=== PATIENT | male | born 2000 | race Asian ===

== ENCOUNTER 2020-07-22 14:03 | Emergency (ER) | payer MEDICAID ==
[~2020-07-22] VITALS: Ht 177.8 cm; Wt 61.2 kg
[2020-07-22 14:12] VITALS: BP_SYST 109
[2020-07-22 14:40] VITALS: BP_SYST 109
== END 2020-07-22 14:40 | disposition home or self-care (01) ==
LOC: SED 14:03
DX: H01.002 Unspecified blepharitis right lower eyelid (principal)
CPT/HCPCS: 99283

== ENCOUNTER 2020-09-20 11:35 | Emergency (ER) | payer MEDICAID ==
[~2020-09-20] VITALS: Ht 177.8 cm; Wt 62.6 kg
[2020-09-20 11:39] VITALS: BP_SYST 111
--- NOTE | 2020-09-20 11:39 | NUR ---
Patient to ER bed 8 to gown for evaluation. Side rails up. Report given to YAJAIRA WALKER.
--- NOTE | 2020-09-20 11:40 | NUR ---
Patient presented to ER C/O EYE IRRITATION Patient ambulatory to ER A&OX4, afebrile, skin pink & warm, denies N/V/D, denies painright eye periorbital redness to right eye. Patient states he has irritation and redness x2 days to right eye. PT ststes he has recent hx pink eye.
--- NOTE | 2020-09-20 12:44 | NUR ---
ER Dr. June at bedside examining patient.
[2020-09-20 13:20] VITALS: BP_SYST 111
--- NOTE | 2020-09-20 13:20 | NUR ---
Patient given written and verbal discharge instructions and verbalizes understanding. ER MD discussed with patient the results and treatment provided. Patient in stable condition. ID arm band removed. Rx of keflex,polytrim given. Patient educated on pain management and to follow up with PMD. Pain Scale 0/10. Opportunity for questions provided and answered. Medication side effect fact sheet provided.
== END 2020-09-20 13:20 | disposition home or self-care (01) ==
LOC: SED 11:35
DX: L03.213 Periorbital cellulitis (principal)
CPT/HCPCS: 81002; 99283

== ENCOUNTER 2020-12-16 08:19 | Emergency (ER) | payer MEDICAID ==
[~2020-12-16] VITALS: Ht 177.8 cm; Wt 63.5 kg
[2020-12-16 08:20] VITALS: BP_SYST 109
[2020-12-16 09:17] VITALS: BP_SYST 109
== END 2020-12-16 09:18 | disposition home or self-care (01) ==
LOC: SED 08:19
DX: H11.432 Conjunctival hyperemia, left eye (principal); H57.89 Other specified disorders of eye and adnexa
CPT/HCPCS: 99283

== ENCOUNTER 2021-05-01 23:28 | Emergency (ER) | payer MEDICAID ==
[~2021-05-01] VITALS: Ht 177.8 cm; Wt 61.2 kg
[2021-05-01 23:37] VITALS: BP_SYST 133
--- NOTE | 2021-05-01 23:41 | NUR ---
Patient triaged and placed in waiting room. VSS and patient appears in no acute distress at this time. Awaiting available bed, and MD notified of need for MSE.
--- NOTE | 2021-05-02 00:17 | NUR ---
Patient to ER bed 2 to gown for evaluation. Side rails up. Report given to DENISE Menendez.
--- NOTE | 2021-05-02 00:17 | NUR ---
ER Dr. Simon at bedside examining patient.
--- NOTE | 2021-05-02 00:20 | NUR ---
Pt BIB family to ED C/O reddness / irritation in R eye after taking nap today and woke up with red crust right eye. VSS no s/s of acute distress No other complaints noted Resting on gurney rails up
[2021-05-02] MEDS ORDERED: TORBREX OP (00:22)
[2021-05-02] MEDS ORDERED: GENTAMICIN SULFATE 0.3% Non-Formulary OPHT. 5 ML DROPS OP ONE (00:30)
[2021-05-02] MEDS ORDERED: TOBRAMYCIN SULFATE 0.3% EYE DROPS 5 ML OP ONE (00:30)
[2021-05-02 01:05] VITALS: BP_SYST 133
--- NOTE | 2021-05-02 01:05 | NUR ---
Patient given written and verbal discharge instructions and verbalizes understanding. ER MD discussed with patient the results and treatment provided. Patient in stable condition. ID arm band removed. Rx of Tobrex given. Patient educated on pain management and to follow up with PMD. Pain Scale 0/10 Opportunity for questions provided and answered. Medication side effect fact sheet provided.
== END 2021-05-02 01:05 | disposition home or self-care (01) ==
LOC: SED 23:28
DX: H10.9 Unspecified conjunctivitis (principal); Z79.899 Other long term (current) drug therapy
CPT/HCPCS: 99283

== ENCOUNTER 2021-05-18 16:11 | Emergency (ER) | payer MEDICAID ==
[~2021-05-18] VITALS: Ht 177.8 cm; Wt 61.2 kg
[~2021-05-18 16:11] MED LIST: TORBREX OP
[2021-05-18 16:22] VITALS: BP_SYST 115
[2021-05-18] MEDS ORDERED: PSEU120T57 PO (16:49)
[2021-05-18] MEDS ORDERED: PRED20TA PO (16:49)
[2021-05-18 17:00] VITALS: BP_SYST 115
== END 2021-05-18 17:00 | disposition home or self-care (01) ==
LOC: SED 16:11
DX: R05 Cough (principal); Z79.899 Other long term (current) drug therapy
CPT/HCPCS: 99283

== ENCOUNTER 2021-05-24 18:48 | Emergency (ER) | payer MEDICAID, SELFPAY ==
[~2021-05-24] VITALS: Ht 177.8 cm; Wt 59.0 kg
[~2021-05-24 18:48] MED LIST changes: +PRED20TA PO; +PSEU120T57 PO
[2021-05-24 19:27] VITALS: BP_SYST 110
[2021-05-24 20:50] VITALS: BP_SYST 110
[2021-05-25] MEDS ORDERED: TRIA10.8 NS (20:12)
== END 2021-05-24 21:00 | disposition left against medical advice (07) ==
LOC: SED 18:48
DX: J06.9 Acute upper respiratory infection, unspecified (principal); Z79.899 Other long term (current) drug therapy; Z20.822 Contact with and (suspected) exposure to COVID-19
CPT/HCPCS: 36415; 99283

== ENCOUNTER 2021-05-25 18:39 | Emergency (ER) | payer MEDICAID, SELFPAY ==
[~2021-05-25] VITALS: Ht 177.8 cm; Wt 59.0 kg
[2021-05-25 18:45] VITALS: BP_SYST 132
[2021-05-25] MEDS ORDERED: TRIA10.8 NS (20:12)
[2021-05-25 20:18] VITALS: BP_SYST 132
== END 2021-05-25 20:18 | disposition home or self-care (01) ==
LOC: SED 18:39
DX: R09.82 Postnasal drip (principal); R05 Cough; Z79.899 Other long term (current) drug therapy
CPT/HCPCS: 99282

== ENCOUNTER 2021-08-03 15:43 | Emergency (ER) | payer MEDICAID, SELFPAY ==
[~2021-08-03] VITALS: Ht 177.8 cm; Wt 63.5 kg
[~2021-08-03 15:43] MED LIST changes: +TRIA10.8 NS
--- NOTE | 2021-08-03 15:45 | NUR ---
Patient to ER bed 8 to gown for evaluation. Side rails up.
--- NOTE | 2021-08-03 15:50 | NUR ---
Pt walked in to ER with c/o right eye swelling, redness and itching x1 day, no discharge noted. Pt denies pain or fever at this time. V/S stable, no acute distress noted.
--- NOTE | 2021-08-03 15:55 | NUR ---
ER Dr. Davidson at bedside examining patient.
[2021-08-03] MEDS ORDERED: CEPH250C PO ×2 (16:07→16:21)
[2021-08-03 16:08] VITALS: BP_SYST 122
[2021-08-03 16:24] VITALS: BP_SYST 122
--- NOTE | 2021-08-03 16:25 | NUR ---
Patient given written and verbal discharge instructions and verbalizes understanding. ER MD discussed with patient the results and treatment provided. Patient in stable condition. ID arm band removed. Rx of Keflex given. Patient educated on pain management and to follow up with PMD. Pain Scale 0. Opportunity for questions provided and answered. Medication side effect fact sheet provided.
[2021-08-04] MEDS ORDERED: MOXI3DRO RIGHT EYE (21:03)
== END 2021-08-03 16:25 | disposition home or self-care (01) ==
LOC: SED 15:43
DX: H00.012 Hordeolum externum right lower eyelid (principal); Z79.899 Other long term (current) drug therapy
CPT/HCPCS: 99283

== ENCOUNTER 2021-08-04 16:50 | Emergency (ER) | payer MEDICAID ==
[~2021-08-04] VITALS: Ht 177.8 cm; Wt 59.0 kg
[~2021-08-04 16:50] MED LIST changes: +CEPH250C PO
[2021-08-04 17:12] VITALS: BP_SYST 108
--- NOTE | 2021-08-04 20:38 | NUR ---
Patient to ER bed 6 to gown for evaluation. Side rails up. Report given to Shon WALKER
--- NOTE | 2021-08-04 20:44 | NUR ---
Dr. Clement bedside for pt eval
--- NOTE | 2021-08-04 20:45 | NUR ---
Pt BIB family to ED seeking evaluation of 2 days of right eye erythema and one day of associated eye blurriness. The patient was seen here yesterday and was discharged home with a prescription for Keflex. The patient reports that this morning he woke up with his eye more erythematous and states his eye now is having yellow discharge. The patient requests that he get a prescription or antibiotic eye drops. The patient wears contact lenses, but reports he has not been wearing them for 3 days
--- NOTE | 2021-08-04 20:50 | NUR ---
Patient given written and verbal discharge instructions and verbalizes understanding. ER MD discussed with patient the results and treatment provided. Patient in stable condition. ID arm band removed. Rx of Vigamox given. Patient educated on pain management and to follow up with PMD. Pain Scale 0/10 Opportunity for questions provided and answered. Medication side effect fact sheet provided.
[2021-08-04] MEDS ORDERED: MOXI3DRO RIGHT EYE (21:03)
[2021-08-04 21:10] VITALS: BP_SYST 108
== END 2021-08-04 20:50 | disposition home or self-care (01) ==
LOC: SED 16:50
DX: H10.9 Unspecified conjunctivitis (principal); Z79.899 Other long term (current) drug therapy
CPT/HCPCS: 99283